=== PATIENT | male | born 1950 | race Hispanic/Latino ===

== ENCOUNTER 2016-10-14 12:16 | Observation (INO) | payer MEDICARE ==
--- NOTE | 2016-10-14 12:46 | C.PDOC ---
History Of Present Illness 66 y/o male c/o no bm x 1-2 days, and took ex-lax this morning.making urine for the last few days. stat pt has constant pain to left lower quadrant today with multiple episodes of vomiting. pt reports difficulty making urine for the last few days, says he feels urge to go, but nothing coming out. pt denies fever and chills. 230 pm pt vomited about half of contrast; still feels nauseous. reglan ordered. Time Seen by Provider: 10/14/16 12:43 Chief Complaint (Nursing): Abdominal Pain History Per: Patient Onset/Duration Of Symptoms: Days (1) Current Symptoms Are (Timing): Worse Location Of Pain/Discomfort: LLQ Radiation Of Pain To:: None Quality Of Discomfort: Sharp Associated Symptoms: Nausea, Vomiting, Constipation. denies: Diarrhea Past Medical History Reviewed: Historical Data, Nursing Documentation, Vital Signs Vital Signs: Last Vital Signs Temp 98.3 F 10/16/16 07:45 Pulse 69 10/16/16 07:45 Resp 20 10/16/16 07:45 BP 122/60 10/16/16 07:45 Pulse Ox 97 10/16/16 07:45 - Medical History PMH: No Chronic Diseases Surgical History: Appendectomy Family History: States: Unknown Family Hx - Social History Hx Alcohol Use: No Hx Substance Use: No - Immunization History Hx Tetanus Toxoid Vaccination: No Hx Influenza Vaccination: No Hx Pneumococcal Vaccination: No Review Of Systems Constitutional: Negative for: Fever, Chills Cardiovascular: Negative for: Chest Pain, Palpitations Respiratory: Negative for: Cough, Shortness of Breath Gastrointestinal: Positive for: Nausea, Vomiting, Abdominal Pain, Constipation. Negative for: Diarrhea Genitourinary: Positive for: Other (difficulty passing urine). Negative for: Dysuria, Frequency Skin: Negative for: Rash Neurological: Negative for: Weakness, Numbness Physical Exam - Physical Exam Appears: In Acute Distress (painful distress. pt vomiting actively on initial exam) Skin: Normal Color, Warm, Dry Head: Atraumatic, Normacephalic Oral Mucosa: Dry Neck: Normal ROM Chest: Symmetrical, No Deformity, No Tenderness Cardiovascular: Rhythm Regular, No Murmur Respiratory: Normal Breath Sounds, No Accessory Muscle Use, No Rales, No Rhonchi , No Wheezing Gastrointestinal/Abdominal: Bowel Sounds, Soft, Tenderness (left lower quadrant) , No Distention, No Guarding, No Rebound Back: No CVA Tenderness Neurological/Psych: Oriented x3, Normal Speech, Normal Cognition, Normal Motor ED Course And Treatment - Laboratory Results Result Diagrams: 10/16/16 06:01 10/16/16 06:01 - CT Scan/US Abd pelvis CT Other Rad Studies (CT/US): Read By Radiologist, Radiology Report Reviewed CT/US Interpretation: IMPRESSION: 1. Delayed excretion of contrast by the left kidney with perinephric fat stranding, asymmetric. enlargement of the left ureter and tiny hyperdense focus noted in the left bladder wall. The possibility. of a tiny stone within the ureterovesicular junction should be considered. The hyperdense focus noted. in the bladder wall could also represent excreted contrast. In any event, the patient could have. passed a stone recently which would account for the findings on the left. 2. Small hiatal hernia. 3. Stable liver and renal cysts. 4. Scattered colonic diverticula. 5. 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 Medical Decision Making Medical Decision Makin66 y/o male with constipation nausea and vomiting and llq pain- consider sbo, diverticulitis, urinary tract infection/obstructed/infected kidney stone. will get labs, ua, give anti-emitic, analgesic, ivf and get ct scan abdomen and re-assess. bladder scan done by JLUIS Alfred with 15 ml urine noted in bladder, no retention. [address] Javier, will admit to Dr Chatterjee,. Disposition Discussed With .: Tanner Javier Doctor Will See Patient In The: Hospital - Disposition Disposition: HOSPITALIZED Disposition Time: 18:36 Condition: STABLE - Clinical Impression Clinical Impression: Pyelonephritis Decision To Admit - Pt Status Changed To: Hospital Disposition Of: Observation - . Bed Request Type: Regular Patient Diagnosis: Pyelonephritis
[2016-10-14] MEDS ORDERED: Sodium Chloride 0.9% 1,000 ML IV SCH (13:00)
[2016-10-14] MEDS ORDERED: Iohexol 240 (50 ml) PO STA (13:04)
[2016-10-14 13:24] LABS: BASO # 0.1 K/uL (0.0-0.2); BASO % 0.7 % (0.0-2.0); HEMATOCRIT 49.4 % (35.0-51.0); LYMPH % 6.7 % (20.0-40.0); MEAN CELL VOLUME 96.4 fL (80.0-94.0); MEAN CORPUSCULAR HEMOGLOBIN 32.7 pg (27.0-31.0); MEAN CORPUSCULAR HGB CONC 33.9 g/dL (33.0-37.0); MONO # 0.5 K/uL (0.0-0.8); MONO % 3.1 % (0.0-10.0); PLATELET COUNT 217 K/uL (130-400); RED CELL DISTRIBUTION WIDTH 14.1 % (11.5-14.5); WHITE BLOOD COUNT 15.2 K/uL (4.8-10.8)
[2016-10-14] MEDS ORDERED: Sodium Chloride 0.9% 1,000 ML ONE (13:27)
[2016-10-14] MEDS ORDERED: Iohexol 240 (50 ml) ONE (13:27)
[2016-10-14 13:30] LABS: CHLORIDE 101 mmol/L (98-107); POTASSIUM 4.3 mmol/L (3.6-5.2); SODIUM 140 mmol/L (132-148)
[2016-10-14 13:33] LABS: ALB/GLOB RATIO 1.5 (1.0-2.1); ALKALINE PHOSPHATASE 70 U/L (38-126); ALT/SGPT 19 U/L (21-72); AST/SGOT 23 U/L (17-59); BILIRUBIN,TOTAL 0.7 mg/dL (0.2-1.3); BLOOD UREA NITROGEN 20 mg/dL (9-20); CALCIUM 9.8 mg/dl (8.6-10.4); CARBON DIOXIDE 28 mmol/L (22-30); GFR AFRICAN-AMERICAN > 60; GLUCOSE,RANDOM 125 mg/dL (75-110); RBC URINE 4 /hpf (0-3); TOTAL PROTEIN 7.6 g/dL (6.3-8.3); URINE BILIRUBIN NEGATIVE (NEGATIVE); URINE BLOOD 2+ (NEGATIVE); URINE COLOR Yellow (YELLOW); URINE GLUCOSE (UA) NORMAL (Normal); URINE KETONE NEGATIVE (NEGATIVE); URINE LEUKOCYTE ESTERASE NEG Leu/uL (Negative); URINE PROTEIN NEGATIVE (NEGATIVE); URINE UROBILINOGEN NORMAL mg/dL (0.2-1.0); WBC URINE 1 /hpf (0-5)
[2016-10-14 13:50] LABS: NEUTROPHIL 83 % (50-75); TOTAL CELLS COUNTED 100
[2016-10-14] MEDS ORDERED: Iodixanol 320 MG/ML 100 ML BOTTLE IV ONE (15:15)
[2016-10-14] MEDS ORDERED: Piperacillin/Tazobact 3.375 GM in Sodium Chloride 100 ML IVPB STA (15:57)
[2016-10-14] MEDS ORDERED: Piperacillin/Tazobact 3.375 gm 100 ML IVPB ONE (16:54)
--- NOTE | 2016-10-14 18:16 | CT ---
EXAM: CT Abdomen and Pelvis With Intravenous Contrast CLINICAL HISTORY: 66 years old, male; Pain; Abdominal pain; Prior surgery; Surgery type: Appendectomy; Patient HX: 03-21-15; Additional info: Abd pain TECHNIQUE: Axial computed tomography images of the abdomen and pelvis with intravenous contrast. This CT exam was performed using one or more of the following dose reduction techniques: automated exposure control, adjustment of the mA and/or kV according to patient size, and/or use of iterative reconstruction technique. Coronal and sagittal reformatted images were created and reviewed. CONTRAST: 100 mL of [id number] administered intravenously. EXAM DATE/TIME: Exam ordered 10/14/2016 1:05 PM COMPARISON: CT - ABD PELVIS PO IV CONTRAST 03/21/2015 8:35:18 AM FINDINGS: Lower thorax: There is a small hiatal hernia. ABDOMEN: Liver: There is a 1.2 cm low density lesion in the posterior segment of the right lobe of the liver inferiorly beneath the liver capsule with a density reading of 5H. This is consistent with a simple cyst and is unchanged from previous there is adreniform enlargement of both adrenal glands.. This is stable. Gallbladder and bile ducts: Unremarkable. No calcified stones. No ductal dilation. Pancreas: Unremarkable. No mass. No ductal dilation. Spleen: Unremarkable. No splenomegaly. Adrenals: See above. Kidneys and ureters: There is stranding of the perinephric fat on the left.. There is minimal stranding noted of the fat in the renal sinus on the left. The and There is delayed excretion of contrast by the left kidney (note is made that contrast is noted within the collecting system of the right kidney). On image 78 series 2, there is a punctate 2 mm focus of hyperdensity projecting within the bladder wall. This could represent a tiny stone within the ureterovesicular junction. This could also represent a tiny focus of contrast within the bladder. No hydronephrosis. Stomach and bowel: There is a 2.3 cm simple cyst (density 12 H.) in the midportion of the left kidney. There is a 9 mm low density lesion in the lower pole the right kidney. It is difficult to characterize because of its small size but is unchanged from previous there are scattered colonic diverticula. No obstruction. No mucosal thickening. Appendix: No findings to suggest acute appendicitis. PELVIS: Bladder: See above. Reproductive: Clips in the left and right hemiscrotum suggest previous hysterectomy ABDOMEN and PELVIS: Intraperitoneal space: Unremarkable. No free air. No significant fluid collection. Bones/joints: No acute fracture. No dislocation. Soft tissues: Unremarkable. Vasculature: Unremarkable. No abdominal aortic aneurysm. Lymph nodes: Unremarkable. No enlarged lymph nodes. IMPRESSION: 1. Delayed excretion of contrast by the left kidney with perinephric fat stranding, asymmetric enlargement of the left ureter and tiny hyperdense focus noted in the left bladder wall. The possibility of a tiny stone within the ureterovesicular junction should be considered. The hyperdense focus noted in the bladder wall could also represent excreted contrast. In any event, the patient could have passed a stone recently which would account for the findings on the left. 2. Small hiatal hernia. 3. Stable liver and renal cysts. 4. Scattered colonic diverticula 5. 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 Images were attached to this report and are available at [email or web address]
--- NOTE | 2016-10-14 20:23 | CP.PCM.HP ---
History of Present Illness - History of Present Illness History of Present Illness: CC: stomach pain and can't urinate HPI: PAtient is a 66 y/o M with past medical hx of appendicitis, testicular cancer, and dental procedures who presented with complaint of LLQ pain and dysuria. He states around 10-11 this morning he developed LLQ pain and which he described as sharp and stabbing. He notes he took some laxatives thinking it would help him have a bowel movement and found he had burning and sharp pain when he urinated and inability to start and keep a stream. While in the ED he was given mophine and had a CT performed where he developed nausea and vomited the contrast up. Just prior to my assessment the patient had urinated in the restroom without difficulty. He states his abdominal pain and dysuria almost resolved. He denies any fever,chills, SOB, diarrhea, constipation , chest pain, or worsening nausea and vomiting. PMD: Raudel Quach PMHX: appendicitis, testicular cancer PSHX: appendectomy, tooth extraction, orchiectomy FamHX: mother- alzheimers, father-DM Allergies: NKDA Social HX: smokes 2 pack a day, marijuana a few times a week ,denies alcohol use. Present on Admission - Present on Admission Any Indicators Present on Admission: No Review of Systems - Constitutional Constitutional: absent: Chills, Fever - EENT Eyes: absent: Change in Vision, Diplopia, Pain Ears: absent: Decreased Hearing, Dizziness Nose/Mouth/Throat: absent: Dry Mouth, Dysphagia, Sore Throat - Cardiovascular Cardiovascular: absent: Chest Pain, Dyspnea, Edema - Respiratory Respiratory: absent: Cough, Dyspnea - Gastrointestinal Gastrointestinal: Abdominal Pain (LLQ), Nausea, Vomiting (contrast). absent: Diarrhea - Genitourinary Genitourinary: Dysuria. absent: Hematuria, Pyuria - Musculoskeletal Musculoskeletal: absent: Back Pain, Numbness, Tingling - Integumentary Integumentary: absent: Lesions, Rash, Wounds - Neurological Neurological: absent: Dizziness, Weakness - Psychiatric Psychiatric: absent: Anxiety, Depression - Endocrine Endocrine: absent: Fatigue, Palpitations Past Patient History - Infectious Disease Hx of Infectious Diseases: None - Past Social History Smoking Status: Heavy Smoker > 10 Cigarettes Daily Alcohol: None Drugs: Cannabis Home Situation {Lives}: Alone - PSYCHIATRIC Hx Substance Use: No - SURGICAL HISTORY Hx Appendectomy: Yes - ANESTHESIA Hx Anesthesia: Yes Hx Anesthesia Reactions: No Hx Malignant Hyperthermia: No Meds Allergies/Adverse Reactions: Allergies Allergy/AdvReac Type Severity Reaction Status Date / Time No Known Allergies Allergy Unverified 03/21/15 05:20 Physical Exam - Constitutional Appears: Non-toxic, No Acute Distress - Head Exam Head Exam: ATRAUMATIC, NORMOCEPHALIC - Eye Exam Eye Exam: EOMI, Normal appearance, PERRL Pupil Exam: NORMAL ACCOMODATION, PERRL - ENT Exam ENT Exam: Mucous Membranes Moist. absent: Normal Oropharynx (poor dentition, missing teeth) - Neck Exam Neck exam: Positive for: Normal Inspection. Negative for: Tenderness, Thyromegaly - Respiratory Exam Respiratory Exam: Clear to Auscultation Bilateral, NORMAL BREATHING PATTERN. absent: Rales, Rhonchi, Wheezes - Cardiovascular Exam Cardiovascular Exam: REGULAR RHYTHM, +S1, +S2. absent: Gallop, Rubs, Systolic Murmur - GI/Abdominal Exam GI & Abdominal Exam: Normal Bowel Sounds, Soft. absent: Guarding, Rebound, Tenderness - Exam Exam: NORMAL INSPECTION. absent: Testicular Tenderness, Uretheral Discharge - Extremities Exam Extremities exam: Positive for: normal capillary refill, normal inspection, pedal pulses present. Negative for: tenderness - Back Exam Back exam: NORMAL INSPECTION. absent: CVA tenderness (L), CVA tenderness (R), rash noted, tenderness - Neurological Exam Neurological exam: Alert, CN II-XII Intact, Oriented x3 - Psychiatric Exam Psychiatric exam: Normal Affect, Normal Mood - Skin Skin Exam: Dry, Intact, Normal Color, Warm Results - Vital Signs Recent Vital Signs: Last Vital Signs Temp 99.3 F 10/14/16 18:48 Pulse 74 10/14/16 18:48 Resp 18 10/14/16 18:48 BP 124/60 10/14/16 18:48 Pulse Ox 98 10/14/16 18:48 - Labs Result Diagrams: 10/14/16 13:16 10/14/16 13:16 Assessment & Plan - Assessment and Plan (Free Text) Assessment: 66 y/o M who presents with LLQ pain and dysuria, 2mm hyperdensity seen in uterovesicular junction on CT. Plan: Flank pain * pyelonephrosis vs nephrolithiasis * asymmetric enlargement of left ureter and tiny hyperdense focus in left bladder wall,small hiatal hernia, stable liver and renal cysts, scattered colonic diverticula [see full report] * Given morphine and Zosyn in ED * Patient urinating without diffuculty now * strain urine * IVF hydration * pain control with Motrin and Morphine * Antibiotics not indicated as per AAFP guidelines as patient is afebrile Leukocytosis * likely pain induced as patient is afebrile * repeat labs in AM * given 1 dose of Zosyn in ED Nausea * Improved * Zofran prn PPX: * Protonix * Zofran * patient is ambulatory Assessment and plan discussed with attending.
[2016-10-14] MEDS: Sodium Chloride 0.9% 1,000 ML IV SCH (21:21)
[2016-10-14 23:49] VITALS: RESP 20
[2016-10-15] MEDS: Sodium Chloride 0.9% 1,000 ML IV SCH ×4 (04:57→20:15)
[2016-10-15] MEDS: metroNIDAZOLE IV 500 mg/100 ml 500 MG/100 ML BAG IVPB SCH ×3 (06:40→21:56)
[2016-10-15 08:21] LABS: CHLORIDE 102 mmol/L (98-107)
[2016-10-15 08:22] LABS: POTASSIUM 3.6 mmol/L (3.6-5.2); SODIUM 137 mmol/L (132-148)
[2016-10-15 08:24] LABS: GFR AFRICAN-AMERICAN > 60
[2016-10-15 08:25] LABS: ALB/GLOB RATIO 1.4 (1.0-2.1); ALKALINE PHOSPHATASE 51 U/L (38-126); ALT/SGPT 24 U/L (21-72); AST/SGOT 25 U/L (17-59); BILIRUBIN,TOTAL 0.9 mg/dL (0.2-1.3); BLOOD UREA NITROGEN 17 mg/dL (9-20); CALCIUM 8.1 mg/dl (8.6-10.4); CARBON DIOXIDE 25 mmol/L (22-30); GLUCOSE,RANDOM 103 mg/dL (75-110); TOTAL PROTEIN 6.2 g/dL (6.3-8.3)
[2016-10-15 09:25] LABS: EOS % 0.1 % (0.0-4.0); HEMATOCRIT 42.8 % (35.0-51.0); MEAN CORPUSCULAR HEMOGLOBIN 32.5 pg (27.0-31.0); MEAN CORPUSCULAR HGB CONC 33.7 g/dL (33.0-37.0)
[2016-10-15 09:35] LABS: BASO % 0.4 % (0.0-2.0); LYMPH # 1.5 K/uL (1.0-4.3); LYMPH % 13.9 % (20.0-40.0); MEAN CELL VOLUME 96.5 fL (80.0-94.0); MEAN PLATELET VOLUME 9.6 fL (7.2-11.7); MONO # 0.8 K/uL (0.0-0.8); RED CELL DISTRIBUTION WIDTH 14.3 % (11.5-14.5)
[2016-10-15] MEDS: Pantoprazole 40 mg EC Tab PO SCH (09:44)
[2016-10-15] MEDS ORDERED: POLYETHYLENE GLYCOL 3350 17 GM/Dose PACKET PO SCH (10:00)
--- NOTE | 2016-10-15 12:45 | CP.PCM.PN ---
Subjective - Date & Time of Evaluation Date of Evaluation: 10/15/16 Time of Evaluation: 12:30 - Subjective Subjective: THIS IS A BRIEF NOTE: The patient was seen and examined by me. He came earlier in the morning, please see HP He is very talkative. In no acute distress. He does not have any pain on his flank / LLQ at this time. He says it is soft and feels normal now. Urinating ok. He had some hiccups earlier which resolved after I gave him thorazine. He explains he has no appettie at all. He looks at food and cannot eat. Will try reglan/zofran IV Continue IV abx, continue IVF. I explained to patient that maybe he has a small stone or early diverticulitis He does smoke, he does not believe in colonoscopy. Has not seen a physician in a long time Tanner Javier Objective - Vital Signs/Intake and Output Vital Signs (last 24 hours): Temp Pulse Resp BP Pulse Ox 98.7 F 64 20 118/62 97 10/15/16 08:17 10/15/16 08:17 10/15/16 08:17 10/15/16 08:17 10/15/16 08:17 Intake and Output: 10/15/16 10/15/16 06:59 18:59 Intake Total 1450 Output Total 100 Balance 1350 - Medications Medications: Current Medications Acetaminophen (Tylenol 325mg Tab) 650 mg PO Q6 PRN PRN Reason: Fever >100.4 F Sodium Chloride (Sodium Chloride 0.9%) 1,000 mls @ 125 mls/hr IV .Q8H [facility] Last Admin: 10/15/16 06:43 Dose: 125 mls/hr Ceftriaxone Sodium 1 gm/ (Sodium Chloride) 100 mls @ 100 mls/hr IVPB DAILY [facility] Last Admin: 10/15/16 09:41 Dose: 100 mls/hr Metronidazole (Flagyl) 500 mg in 100 mls @ 100 mls/hr IVPB Q8 [facility] Last Admin: 10/15/16 06:40 Dose: 100 mls/hr Ibuprofen (Motrin Tab) 400 mg PO Q6 PRN PRN Reason: Pain, moderate (4-7) Ondansetron HCl (Zofran Inj) 4 mg IVP Q4H PRN PRN Reason: Nausea/Vomiting Last Admin: 10/15/16 06:42 Dose: 4 mg Pantoprazole Sodium (Protonix Ec Tab) 40 mg PO DAILY [facility] Last Admin: 10/15/16 09:44 Dose: 40 mg - Labs Labs: 10/15/16 09:12 10/15/16 07:45
[2016-10-16] MEDS: Sodium Chloride 0.9% 1,000 ML IV SCH ×2 (05:15→11:50)
[2016-10-16] MEDS: metroNIDAZOLE IV 500 mg/100 ml 500 MG/100 ML BAG IVPB SCH ×2 (05:32→14:34)
[2016-10-16 06:17] LABS: BASO # 0.1 K/uL (0.0-0.2); BASO % 0.7 % (0.0-2.0); EOS % 0.5 % (0.0-4.0); HEMATOCRIT 39.3 % (35.0-51.0); LYMPH # 1.9 K/uL (1.0-4.3); MEAN CORPUSCULAR HEMOGLOBIN 33.3 pg (27.0-31.0); MEAN CORPUSCULAR HGB CONC 34.7 g/dL (33.0-37.0); MEAN PLATELET VOLUME 8.8 fL (7.2-11.7); MONO # 0.5 K/uL (0.0-0.8); MONO % 5.4 % (0.0-10.0); RED CELL DISTRIBUTION WIDTH 14.4 % (11.5-14.5); WHITE BLOOD COUNT 8.9 K/uL (4.8-10.8)
[2016-10-16 06:20] LABS: CHLORIDE 108 mmol/L (98-107); POTASSIUM 3.7 mmol/L (3.6-5.2); SODIUM 137 mmol/L (132-148)
[2016-10-16 06:22] LABS: GFR AFRICAN-AMERICAN > 60
[2016-10-16 06:23] LABS: ALKALINE PHOSPHATASE 43 U/L (38-126); ALT/SGPT 21 U/L (21-72); AST/SGOT 31 U/L (17-59); BLOOD UREA NITROGEN 15 mg/dL (9-20); CALCIUM 7.9 mg/dl (8.6-10.4); CARBON DIOXIDE 21 mmol/L (22-30); GLUCOSE,RANDOM 89 mg/dL (75-110); TOTAL PROTEIN 5.4 g/dL (6.3-8.3)
[2016-10-16 06:28] LABS: ALB/GLOB RATIO 1.3 (1.0-2.1)
[2016-10-16 07:54] VITALS: BP 122/60; PULSE 69; TEMP 98.3; O2SAT 97
[2016-10-16] MEDS ORDERED: Magnesium Oxide 400 mg Tab UD PO STA (09:55)
[2016-10-16] MEDS ORDERED: Enoxaparin 40 mg Syringe SC SCH (10:00)
[2016-10-16] MEDS: Pantoprazole 40 mg EC Tab PO SCH (10:04)
--- NOTE | 2016-10-16 11:25 | CP.PCM.DIS ---
<TrippNicki - Last Filed: 10/23/16 16:33> Provider - Provider Date of Admission: 10/14/16 18:34 Attending physician: Kushal Chatterjee MD Primary care physician: Dr. Raudel Quach Consults: none Time Spent in preparation of Discharge (in minutes): 35 Diagnosis - Discharge Diagnosis (1) Abdominal pain Status: Acute Comment: Resolved. Patient to follow up with PCP and get screening colonoscopy Hospital Course - Lab Results Lab Results: Most Recent Lab Values WBC 8.9 K/uL (4.8-10.8) 10/16/16 06:01 RBC 4.10 Mil/uL (4.40-5.90) L 10/16/16 06:01 Hgb 13.7 g/dL (12.0-18.0) 10/16/16 06:01 Hct 39.3 % (35.0-51.0) 10/16/16 06:01 MCV 96.0 fL (80.0-94.0) H 10/16/16 06:01 MCH 33.3 pg (27.0-31.0) H 10/16/16 06:01 MCHC 34.7 g/dL (33.0-37.0) 10/16/16 06:01 RDW 14.4 % (11.5-14.5) 10/16/16 06:01 Plt Count 158 K/uL (130-400) 10/16/16 06:01 MPV 8.8 fL (7.2-11.7) 10/16/16 06:01 Neut % (Auto) 72.4 % (50.0-75.0) 10/16/16 06:01 Lymph % (Auto) 21.0 % (20.0-40.0) 10/16/16 06:01 [place] % (Auto) 5.4 % (0.0-10.0) 10/16/16 06:01 Eos % (Auto) 0.5 % (0.0-4.0) 10/16/16 06:01 Baso % (Auto) 0.7 % (0.0-2.0) 10/16/16 06:01 Neut # 6.5 K/uL (1.8-7.0) 10/16/16 06:01 Lymph # 1.9 K/uL (1.0-4.3) 10/16/16 06:01 [place] # 0.5 K/uL (0.0-0.8) 10/16/16 06:01 Eos # 0.0 K/uL (0.0-0.7) 10/16/16 06:01 Baso # 0.1 K/uL (0.0-0.2) 10/16/16 06:01 Neutrophils % (Manual) 83 % (50-75) H 10/14/16 13:16 Band Neutrophils % 6 % (0-2) H 10/14/16 13:16 Lymphocytes % (Manual) 8 % (20-40) L 10/14/16 13:16 Monocytes % (Manual) 3 % (0-10) 10/14/16 13:16 Platelet Estimate Normal (NORMAL) 10/14/16 13:16 RBC Morphology Normal 10/14/16 13:16 Sodium 137 mmol/L (132-148) 10/16/16 06:01 Potassium 3.7 mmol/L (3.6-5.2) 10/16/16 06:01 Chloride 108 mmol/L (98-107) H 10/16/16 06:01 Carbon Dioxide 21 mmol/L (22-30) L 10/16/16 06:01 Anion Gap 12 (10-20) 10/16/16 06:01 BUN 15 mg/dL (9-20) 10/16/16 06:01 Creatinine 0.8 MG/DL (0.8-1.5) 10/16/16 06:01 Est GFR ( Amer) > 60 10/16/16 06:01 Est GFR (Non-Af Amer) > 60 10/16/16 06:01 Random Glucose 89 mg/dL (75-110) 10/16/16 06:01 Calcium 7.9 mg/dl (8.6-10.4) L 10/16/16 06:01 Total Bilirubin 1.0 mg/dL (0.2-1.3) 10/16/16 06:01 AST 31 U/L (17-59) 10/16/16 06:01 ALT 21 U/L (21-72) 10/16/16 06:01 Alkaline Phosphatase 43 U/L (38-126) 10/16/16 06:01 Total Protein 5.4 g/dL (6.3-8.3) L 10/16/16 06:01 Albumin 3.0 g/dL (3.5-5.0) L 10/16/16 06:01 Globulin 2.4 gm/dL (2.2-3.9) 10/16/16 06:01 Albumin/Globulin Ratio 1.3 (1.0-2.1) 10/16/16 06:01 Lipase 87 U/L (23-300) 10/14/16 13:16 Urine Color Yellow (YELLOW) 10/14/16 13:16 Urine Clarity Clear (Clear) 10/14/16 13:16 Urine pH 5.0 (5.0-8.0) 10/14/16 13:16 Ur Specific [place] 1.027 (1.003-1.030) 10/14/16 13:16 Urine Protein Negative mg/dL (NEGATIVE) 10/14/16 13:16 Urine Glucose (UA) Normal mg/dL (Normal) 10/14/16 13:16 Urine Ketones Negative mg/dL (NEGATIVE) 10/14/16 13:16 Urine Blood 2+ (NEGATIVE) H 10/14/16 13:16 Urine Nitrate Negative (NEGATIVE) 10/14/16 13:16 Urine Bilirubin Negative (NEGATIVE) 10/14/16 13:16 Urine Urobilinogen Normal mg/dL (0.2-1.0) 10/14/16 13:16 Ur Leukocyte Esterase Neg Lisandra/uL (Negative) 10/14/16 13:16 Urine WBC (Auto) 1 /hpf (0-5) 10/14/16 13:16 Urine RBC (Auto) 4 /hpf (0-3) H 10/14/16 13:16 Ur Squamous Epith Cells 2 /hpf (0-5) 10/14/16 13:16 - Hospital Course Hospital Course: On Admission: Patient is a 66 y/o M with past medical hx of appendicitis, testicular cancer, and dental procedures who presented with complaint of LLQ pain and dysuria. He states around 10-11 this morning he developed LLQ pain and which he described as sharp and stabbing. He notes he took some laxatives thinking it would help him have a bowel movement and found he had burning and sharp pain when he urinated and inability to start and keep a stream. While in the ED he was given mophine and had a CT performed where he developed nausea and vomited the contrast up. Just prior to my assessment the patient had urinated in the restroom without difficulty. He states his abdominal pain and dysuria almost resolved. He denies any fever,chills, SOB, diarrhea, constipation, chest pain, or worsening nausea and vomiting. During hospital Stay: CT scan showed asymmetric enlargement of left ureter and tiny hyperdense focus in left bladder wall,small hiatal hernia, stable liver and renal cysts, scattered colonic diverticula [see full report]. Patient was started on abx for early signs of diverticulitis. Patient had a small white count but remained afebrile. Patient was controlled with medications and zofran was given for nausea. Patient's pain resolved and he was eating a full diet. Patient complained of some weight loss. He reported never having a colonoscopy performed in the past and stated that he did not want one to be done. It was recommend that he follow up outpatient and really consider getting this colonoscopy done considering his symptoms. Patient stable for discharge home. He is to follow up with his primary care Dr. Raudel Quach within one week of discharge for post hospital care. He should be evaluated with a screening colonoscopy. Patient is to return to the emergency room if symptoms return. All instructions explained to the patient and he agrees. This is a summary of the hospital stay. Please refer to the EMR for full details. Discharge Exam - Head Exam Head Exam: ATRAUMATIC, NORMOCEPHALIC - Eye Exam Eye Exam: EOMI, Normal appearance Pupil Exam: NORMAL ACCOMODATION - ENT Exam ENT Exam: Mucous Membranes Moist - Respiratory Exam Respiratory Exam: Clear to PA & Lateral. absent: Accessory Muscle Use, Respiratory Distress - Cardiovascular Exam Cardiovascular Exam: REGULAR RHYTHM, +S1, +S2 - GI/Abdominal Exam GI & Abdominal Exam: Normal Bowel Sounds, Soft. absent: Distended, Firm, Guarding, Tenderness - Extremities Exam Extremities exam: normal inspection, pedal pulses present - Back Exam Back exam: NORMAL INSPECTION. absent: CVA tenderness (L), CVA tenderness (R), paraspinal tenderness - Neurological Exam Neurological exam: Alert, CN II-XII Intact, Normal Gait, Oriented x3 - Psychiatric Exam Psychiatric exam: Normal Affect, Normal Mood - Skin Skin Exam: Dry, Intact, Normal Color, Warm Discharge Plan - Follow Up Plan Condition: STABLE Disposition: HOME/ ROUTINE Instructions: Acute Pyelonephritis (DC) Additional Instructions: Patient stable for discharge home. He is to follow up with his primary care Dr. Raudel Quach within one week of discharge for post hospital care. He should be evaluated with a screen colonoscopy. Patient is to return to the emergency room if symptoms return. All instructions explained to the patient and he agrees. Referrals: Raudel Quach, [Staff Provider] - <Tanner Javier - Last Filed: 10/23/16 16:34> Provider - Provider Date of Admission: 10/14/16 18:34 Attending physician: Kushal Chatterjee MD Hospital Course - Lab Results Lab Results: Most Recent Lab Values WBC 8.9 K/uL (4.8-10.8) 10/16/16 06:01 RBC 4.10 Mil/uL (4.40-5.90) L 10/16/16 06:01 Hgb 13.7 g/dL (12.0-18.0) 10/16/16 06:01 Hct 39.3 % (35.0-51.0) 10/16/16 06:01 MCV 96.0 fL (80.0-94.0) H 10/16/16 06:01 MCH 33.3 pg (27.0-31.0) H 10/16/16 06:01 MCHC 34.7 g/dL (33.0-37.0) 10/16/16 06:01 RDW 14.4 % (11.5-14.5) 10/16/16 06:01 Plt Count 158 K/uL (130-400) 10/16/16 06:01 MPV 8.8 fL (7.2-11.7) 10/16/16 06:01 Neut % (Auto) 72.4 % (50.0-75.0) 10/16/16 06:01 Lymph % (Auto) 21.0 % (20.0-40.0) 10/16/16 06:01 [place] % (Auto) 5.4 % (0.0-10.0) 10/16/16 06:01 Eos % (Auto) 0.5 % (0.0-4.0) 10/16/16 06:01 Baso % (Auto) 0.7 % (0.0-2.0) 10/16/16 06:01 Neut # 6.5 K/uL (1.8-7.0) 10/16/16 06:01 Lymph # 1.9 K/uL (1.0-4.3) 10/16/16 06:01 [place] # 0.5 K/uL (0.0-0.8) 10/16/16 06:01 Eos # 0.0 K/uL (0.0-0.7) 10/16/16 06:01 Baso # 0.1 K/uL (0.0-0.2) 10/16/16 06:01 Neutrophils % (Manual) 83 % (50-75) H 10/14/16 13:16 Band Neutrophils % 6 % (0-2) H 10/14/16 13:16 Lymphocytes % (Manual) 8 % (20-40) L 10/14/16 13:16 Monocytes % (Manual) 3 % (0-10) 10/14/16 13:16 Platelet Estimate Normal (NORMAL) 10/14/16 13:16 RBC Morphology Normal 10/14/16 13:16 Sodium 137 mmol/L (132-148) 10/16/16 06:01 Potassium 3.7 mmol/L (3.6-5.2) 10/16/16 06:01 Chloride 108 mmol/L (98-107) H 10/16/16 06:01 Carbon Dioxide 21 mmol/L (22-30) L 10/16/16 06:01 Anion Gap 12 (10-20) 10/16/16 06:01 BUN 15 mg/dL (9-20) 10/16/16 06:01 Creatinine 0.8 MG/DL (0.8-1.5) 10/16/16 06:01 Est GFR ( Amer) > 60 10/16/16 06:01 Est GFR (Non-Af Amer) > 60 10/16/16 06:01 Random Glucose 89 mg/dL (75-110) 10/16/16 06:01 Calcium 7.9 mg/dl (8.6-10.4) L 10/16/16 06:01 Total Bilirubin 1.0 mg/dL (0.2-1.3) 10/16/16 06:01 AST 31 U/L (17-59) 10/16/16 06:01 ALT 21 U/L (21-72) 10/16/16 06:01 Alkaline Phosphatase 43 U/L (38-126) 10/16/16 06:01 Total Protein 5.4 g/dL (6.3-8.3) L 10/16/16 06:01 Albumin 3.0 g/dL (3.5-5.0) L 10/16/16 06:01 Globulin 2.4 gm/dL (2.2-3.9) 10/16/16 06:01 Albumin/Globulin Ratio 1.3 (1.0-2.1) 10/16/16 06:01 Lipase 87 U/L (23-300) 10/14/16 13:16 Urine Color Yellow (YELLOW) 10/14/16 13:16 Urine Clarity Clear (Clear) 10/14/16 13:16 Urine pH 5.0 (5.0-8.0) 10/14/16 13:16 Ur Specific [place] 1.027 (1.003-1.030) 10/14/16 13:16 Urine Protein Negative mg/dL (NEGATIVE) 10/14/16 13:16 Urine Glucose (UA) Normal mg/dL (Normal) 10/14/16 13:16 Urine Ketones Negative mg/dL (NEGATIVE) 10/14/16 13:16 Urine Blood 2+ (NEGATIVE) H 10/14/16 13:16 Urine Nitrate Negative (NEGATIVE) 10/14/16 13:16 Urine Bilirubin Negative (NEGATIVE) 10/14/16 13:16 Urine Urobilinogen Normal mg/dL (0.2-1.0) 10/14/16 13:16 Ur Leukocyte Esterase Neg [place]andra/uL (Negative) 10/14/16 13:16 Urine WBC (Auto) 1 /hpf (0-5) 10/14/16 13:16 Urine RBC (Auto) 4 /hpf (0-3) H 10/14/16 13:16 Ur Squamous Epith Cells 2 /hpf (0-5) 10/14/16 13:16 Attending/Attestation - Attestation I have personally seen and examined this patient.: Yes I have fully participated in the care of the patient.: Yes I have reviewed all pertinent clinical information, including history, physical exam and plan: Yes
== END 2016-10-16 14:32 | disposition home or self-care (01) ==
LOC: C.ER 12:16 → C.9E 18:34 → C.3T 18:54
PROVIDERS: ADMIT Internal Medicine; ATTEND Internal Medicine
DX: R10.32 Left lower quadrant pain (principal); R30.0 Dysuria; F17.210 Nicotine dependence, cigarettes, uncomplicated
CPT/HCPCS: 36415; 74177; 80053; 81001; 83690; 85025; 96361; 96365; 96366; 96367; 96372; 96375; 96376; 99285; G0378; J0696; J1650; J2270; J2405; J2543; J2765; J3230; J7040; J7050; Q9966; Q9967

== ENCOUNTER 2017-09-15 14:24 | Emergency (ER) | payer MEDICARE ==
[2017-09-15 14:32] VITALS: TEMP 98.2
[2017-09-15 15:28] LABS: BASO # 0.1 K/uL (0.0-0.2); BASO % 1.6 % (0.0-2.0); EOS # 0.1 K/uL (0.0-0.7); EOS % 1.6 % (0.0-4.0); HEMOGLOBIN 15.3 g/dL (12.0-18.0); LYMPH # 2.1 K/uL (1.0-4.3); MEAN CELL VOLUME 95.4 fL (80.0-94.0); MEAN CORPUSCULAR HEMOGLOBIN 32.6 pg (27.0-31.0); MEAN CORPUSCULAR HGB CONC 34.2 g/dL (33.0-37.0); MEAN PLATELET VOLUME 8.8 fL (7.2-11.7); MONO # 0.4 K/uL (0.0-0.8); MONO % 6.2 % (0.0-10.0); NEUT # 4.1 K/uL (1.8-7.0); NEUT % 59.6 % (50.0-75.0); NRBC % 0.1 % (0.0-2.0); RBC 4.69 Mil/uL (4.40-5.90); RED CELL DISTRIBUTION WIDTH 14.7 % (11.5-14.5); WHITE BLOOD COUNT 6.9 K/uL (4.8-10.8)
[2017-09-15 15:45] LABS: ALB/GLOB RATIO 1.2 (1.0-2.1); ALT/SGPT 12 U/L (21-72); AST/SGOT 20 U/L (17-59); BLOOD UREA NITROGEN 16 mg/dL (9-20); CALCIUM 9.7 mg/dl (8.6-10.4); GFR AFRICAN-AMERICAN > 60; GFR NON-AFRICAN AMERICAN > 60
[2017-09-15 16:49] VITALS: BP 105/62; PULSE 54; RESP 12; O2SAT 97
--- NOTE | 2017-09-15 17:47 | RAD ---
PROCEDURE: CHEST RADIOGRAPH, 1 VIEW HISTORY: chest pain COMPARISON: Correlation made with prior CT scan abdomen pelvis 10/14/2016 which imaged both lung bases. FINDINGS: LUNGS: Minor bibasilar atelectasis. . PLEURA: No pneumothorax or pleural fluid seen. CARDIOVASCULAR: Normal. OSSEOUS STRUCTURES: Mild degenerative osteoarthritis both shoulder girdles. Minor multilevel degenerative spondylosis of the thoracic spine. VISUALIZED UPPER ABDOMEN: Normal. OTHER FINDINGS: None. IMPRESSION: Minor bibasilar atelectasis.
--- NOTE | 2017-09-15 19:04 | C.PDOC ---
History Of Present Illness 66 year old male for evaluation of dizziness which has been intermittent since yesterday. Patient states dizziness worsens with head movement and changes in position. He denies fever, chills, chest pain, shortness of breath. Chief Complaint (Nursing): Dizziness/Lightheaded History Per: Patient History/Exam Limitations: no limitations Onset/Duration Of Symptoms: Hrs, Intermittent Episodes Current Symptoms Are (Timing): Still Present Activity At Onset Of Symptoms: Change In Head Position Recent travel outside of the [place]: No Additional History Per: Patient Past Medical History Reviewed: Historical Data, Nursing Documentation, Vital Signs Vital Signs: Last Vital Signs Temp 98.2 F 09/15/17 14:30 Pulse 54 L 09/15/17 16:48 Resp 12 09/15/17 16:48 BP 105/62 09/15/17 16:48 Pulse Ox 97 09/15/17 23:42 - Medical History PMH: No Chronic Diseases Denies: Chronic Kidney Disease Surgical History: Appendectomy Family History: States: Unknown Family Hx - Social History Hx Alcohol Use: No Hx Substance Use: No - Immunization History Hx Tetanus Toxoid Vaccination: No Hx Influenza Vaccination: No Hx Pneumococcal Vaccination: No Review Of Systems Constitutional: Negative for: Fever, Chills Cardiovascular: Negative for: Chest Pain Respiratory: Negative for: Shortness of Breath Neurological: Positive for: Dizziness Physical Exam - Physical Exam Appears: Non-toxic, No Acute Distress Skin: Normal Color, Warm, Dry Head: Atraumatic, Normacephalic Eye(s): bilateral: Normal Inspection Oral Mucosa: Moist Neck: Supple Chest: Symmetrical, No Deformity, No Tenderness Cardiovascular: Rhythm Regular, No Murmur Respiratory: Normal Breath Sounds, No Rales, No Rhonchi, No Wheezing Extremity: Normal ROM, Capillary Refill (less than 2 seconds ) Neurological/Psych: Oriented x3, Normal Speech, Normal Cognition Gait: Steady ED Course And Treatment - Laboratory Results Result Diagrams: 09/15/17 15:10 09/15/17 15:10 ECG: Interpreted By Me, Viewed By Me ECG Rhythm: Sinus Bradycardia Interpretation Of ECG: Sinus Bradycardia at rate 58bpm. Normal axis and normal rhythm. Rate From EC O2 Sat by Pulse Oximetry: 97 (on RA ) Pulse Ox Interpretation: Normal Medical Decision Making Medical Decision Making: Impression: 66 y/o male with intermittent dizziness Progress: Bloodwork, CXR, EKG ordered and reviewed. Antivert PO administered. On re-exam, patient is resting comfortably, showing no signs of distress and reports an improvement in symptoms. Patient is stable for discharge and is advised to f/u with PMD within 1-2 days for further evaluation and/or return to the ED if symptoms persist or worsen. Disposition - Disposition Referrals: Raudel Quach DO [Staff Provider] - Disposition: HOME/ ROUTINE Disposition Time: 14:50 Condition: IMPROVED Additional Instructions: Thank you for letting us take care of you today. The emergency medical care you received today was directed at your acute symptoms. If you were prescribed any medication, please fill it and take as directed. It may take several days for your symptoms to resolve. Return to the Emergency Department if your symptoms worsen, do not improve, or if you have any other problems. Please contact your doctor or call one of the physicians/clinics you have been referred to that are listed on the Patient Visit Information form that is included in your discharge packet. Bring any paperwork you were given at discharge with you along with any medications you are taking to your follow up visit. Our treatment cannot replace ongoing medical care by a primary care provider (PCP) outside of the emergency department. Thank you for allowing the [facility] team to be part of your care today. Follow up with your primary doctor in 2-3 days for re-evaluation and further management. Prescriptions: Fluticasone Propionate [Flovent Hfa] 2 puff IH BID #1 [email or web address] Meclizine [Meclizine*] 25 mg PO Q6 PRN #20 tab PRN Reason: Dizziness Instructions: Vertigo (a Type of Dizziness) Forms: Asker (Senegalese) - Clinical Impression Clinical Impression: Dizziness - Scribe Statement The provider has reviewed the documentation as recorded by the Scribe (Linnea Olivera) Provider Attestation: All medical record entries made by the Scribe were at my direction and personally dictated by me. I have reviewed the chart and agree that the record accurately reflects my personal performance of the history, physical exam, medical decision making, and the department course for this patient. I have also personally directed, reviewed, and agree with the discharge instructions and disposition.
--- NOTE | 2017-09-18 22:08 | CARD ---
APPROVED REPORT EKG Measurement Heart [id number] <Conclusion> Sinus bradycardia Otherwise normal ECG
== END 2017-09-15 17:16 | disposition home or self-care (01) ==
LOC: C.ER 14:24
DX: R42 Dizziness and giddiness (principal)

== ENCOUNTER 2018-09-24 10:37 | Outpatient (CLI) | payer MEDICARE | END 2018-09-24 10:38 | disposition home or self-care (01) | LOC: C.USIC 10:38 ==